=== PATIENT | female | born 1945 | race Caucasian/White ===

== ENCOUNTER 2017-11-04 09:00 | Outpatient (RCR) | payer MEDICARE, OTHER, SELFPAY ==
--- NOTE | 2017-10-06 09:49 | PT.OIE ---
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) Allergic rhinitis (Chronic) DSAP (disseminated superficial actinic porokeratosis) (Chronic) Peripheral neuropathy (Chronic) Osteopenia after menopause (Chronic) Recurrent genital HSV (herpes simplex virus) infection (Chronic) History of melanoma (Resolved) Cervical myofascial strain (Acute) History of poliomyelitis (Chronic) Basal cell carcinoma of skin (Resolved) Squamous cell skin cancer (Resolved) Actinic keratosis (Chronic) Herpes (Chronic ~1979) Melanoma (Chronic ~2014) Neck pain (Chronic) Osteoarthritis of neck (Chronic) Osteopenia (Chronic) Peripheral neuropathy (Chronic) Rosacea (Chronic) Skin cancer (Chronic) Chicken pox (Resolved) Measles (Resolved) Mumps (Resolved) Polio (Resolved) Past Surgical History (Last Updated 09/15/17 @ 20:37 by Gabrielle Mejía) Anesthesia (Resolved) History of bilateral saline breast implants (Resolved ~1979) Provider Visit Care Team Role Provider Type Kirill Maurer Primary Care Provider Non-Staff Specialty: Medical Address: [address] [place] [address], [phone] Fax: Email: Citlalli Chu DO Attending Provider Physician Specialty: Family Practice Address: [address] [place] [address], [id number] Email: [email or web address] Physical Therapy Initial Evaluation PT-OP-A Visit Information Start: 10/06/17 09:13 Freq: Status: Active Protocol: Document 10/05/17 15:15 [facility] (Rec: 10/06/17 09:49 [facility] [email or web address]) Out-Patient Physical Therapy Visit Information Visit Information Visit Type Initial Evaluation Visit Start Time 15:15 Visit Stop Time 16:00 Total Visit Minutes 45 Visit Number 1 Evaluation Information Evaluation Date 10/05/17 PT-OP-B Current Condition Start: 10/06/17 09:13 Freq: Status: Active Protocol: Document 10/05/17 15:15 [facility] (Rec: 10/06/17 09:49 [facility] [email or web address]) Current Condition History of Current Condition Onset Date Symptoms began in July 2017 Current Complaints right sided neck pain rated 4- 5/10 History of Current Condition Lauren is a active 72 year old female with complaints of right sided neck pain that began in July 2017. Her symptoms began after lifting over head weights in a exercise class. She notes 5 years ago she had similar complaints but they resolved after a lidocaine injection. Her complaints of pain are with positions having her head down such as reading or chopping vegetables in the kitchen. She denies any pain at night. Past medical history includes osteopenia, hx of polio, back pain, and hx of neck pain 5 years ago. Treatment Goals Patient/Caregiver Goals The patients goals include decreasing pain and modifying her exercise routine to prevent future pain symptoms PT-OP-C Subjective Start: 10/06/17 09:13 Freq: Status: Active Protocol: Document 10/05/17 15:15 [facility] (Rec: 10/06/17 09:49 [facility] [email or web address]) OP-PT Pain Assessment Pain Assessment Grid Paper Pain Assessment Grid Completed Yes Location Right Neck Intensity 5 Scale Used Numeric (1 - 10) Description Aching Sharp Tightness With Movement Frequency Intermittent Pain Duration while in a flexed position Pain Aggravating Factors Position PT-OP-F Manual Assessment Start: 10/06/17 09:13 Freq: Status: Active Protocol: Document 10/05/17 15:15 [facility] (Rec: 10/06/17 09:49 [facility] [email or web address]) Manual Assessments Soft Tissue Assessment Soft Tissue Mobility Assessment myofascial tightness in bilateral upper trapezius, scalenes, and levator trapezius,suboccipitals, and pec minor Joint Mobility Assessment Joint Mobility Assessment decreased C1-2 cervical rotation bilaterally decreased cervical joint mobility into sidebending left C5-6 left facet joint restriction hypomobility to joint play of the upper thoracic spine into extension PT-OP-J Posture/Palpation/Skin Start: 10/06/17 09:13 Freq: Status: Active Protocol: Document 10/05/17 15:15 [facility] (Rec: 10/06/17 09:49 [facility] [email or web address]) Posture Evaluation Position Standing Evaluation View Posterior Head/C-Spine Posture Extended Shoulder Posture (L) Elevated Comments Posture Comments due to hx of polio Roe stands with right shoulder depresssed and slight curve of her thoracic spine, she carries herself very stiff in the thoracic spine and has over dominance of the obliques at rest Palpation Assessment Location Two Palpation Location thoracic spine Palpation Findings Tenderness Palpation Details hypomobility of the thoracic spine One Palpation Location cervical spine musculature Palpation Findings Soft Tissue Tightness Spasm Muscle Guarding PT-OP-K Range of Motion Start: 10/06/17 09:13 Freq: Status: Active Protocol: Document 10/05/17 15:15 [facility] (Rec: 10/06/17 09:49 [facility] [email or web address]) Cervical Spine Range of Motion Cervical Spine Active Testing Position Sitting Flexion 70 Extension 60 Rotation Left 40 Rotation Right 45 Lateral Flexion Left 10 Lateral Flexion Right 20 ROM Limitations Soft Tissue Tightness Pain PT-OP-Q Treatments Start: 10/06/17 09:13 Freq: Status: Active Protocol: Document 10/05/17 15:15 [facility] (Rec: 10/06/17 09:49 [facility] [email or web address]) Therapeutic Exercises Supine Exercises 2 Supine Exercise Name seated chin retraction Reps/Minutes 10 reps a few times per day 1 Supine Exercise Name seated scalene and levator scapula stretch Side bilateral Reps/Minutes hold 1-2 minutes Prone Exercises 1 Prone Exercise Name prone chin tuck with head lift Reps/Minutes 10 reps Other Exercises 1 Other Exercise Name foam roll stretch Manual Therapy Treatment Soft Tissue Mobilization 1 Body Location cervical spine Comments trial of suboccipital release and manual cervical traction with good tolerance PT-OP-T Assessment and Plan Start: 10/06/17 09:13 Freq: Status: Active Protocol: Document 10/05/17 15:15 [facility] (Rec: 10/06/17 09:49 [facility] [email or web address]) Physical Therapy Assessment Rehab Potential Rehabilitation Potential Excellent Evaluation Complexity Number of Personal Factors/Comorbidities 0 Number of Body Systems Impaired 1-2 Clinical Presentation at Evaluation Stable Impairments Impairments Activity Tolerance Pain Posture ROM Soft Tissue Mobility Goals Four Impairment Roe lacks a home program for flexibility and strength Fdc Goal (LTG) Roe is educated on a home exercise program that is safe for her for weight lifting and yoga positions that avoid strain to the cervical spine Three Impairment myofascial restrictions cervical musculature, decreased thoracic mobility Metals Analyst Goal (LTG) There is a decrease overall in myofascial tightness of the upper trapezius, scalenes, and levator scapula reducing compression to the cervical spine. Improved thoracic mobility with manual treatments and stretches LTG Duration 8 weeks Two Impairment pain in the cervical spine rated 4-5/10 Short Term Goal (STG) Roe reports decreased complaints of pain with aggravating activities STG Duration 6 weeks One Impairment decreased cervical spine ROM Short Term Goal (STG) Improve cervcial spine ROM to WFL and pain free enabling Roe to look down for reading and cooking activities STG Duration 6 weeks Assessment Summary Assessment Charan is a active 72 year old female who injured her neck lifting weights overhead in a exercise class in July. Her chief complaints of neck pain are with activities that require her head to be down including ready and prepping dinner. With examination today she is very tight in her cervical musculature into the upper trapezius, scalenes and levator scapula bilaterally. She is restricted in the facet joints C5-6 on the left and with C1-2 rotation. Roe would also benefit from instruction in a home exercise program for weight lifting and yoga positions that are safe for her to do to prevent further injury. She tolerated treatment well today and is a good candidate for PT Physical Therapy Plan Therapeutic Interventions Therapeutic Interventions Home Exercise Program Joint Mobilizations Manual Therapy Self-Care/Home Management Soft Tissue Mobilization Therapeutic Exercises Modalities Traction- Mechanical Next Visit Focus/Plan Next Note Type Treatment Note Next Visit Plan begin working on thoracic mobility and trial of cervical traction as manual traction worked well for her
--- NOTE | 2017-10-06 09:50 | PT.OPPOC ---
Current Diagnoses Cervicalgia (10/05/17) Provider Visit Care Team Role Provider Type Kirill Maurer Primary Care Provider Non-Staff Specialty: Medical Address: [address] [place], [address] Fax: Email: Citlalli Chu DO Attending Provider Physician Specialty: Family Practice Address: [address] [place] [address], [phone] Email: [email or web address] Plan Of Care PT-OP-T Assessment and Plan Start: 10/06/17 09:13 Freq: Status: Active Protocol: Document 10/05/17 15:15 [facility] (Rec: 10/06/17 09:49 [facility] [email or web address]) Physical Therapy Assessment Rehab Potential Rehabilitation Potential Excellent Evaluation Complexity Number of Personal Factors/Comorbidities 0 Number of Body Systems Impaired 1-2 Clinical Presentation at Evaluation Stable Impairments Impairments Activity Tolerance Pain Posture ROM Soft Tissue Mobility Goals Four Impairment Roe lacks a home program for flexibility and strength Intermediate Goal (LTG) Roe is educated on a home exercise program that is safe for her for weight lifting and yoga positions that avoid strain to the cervical spine Three Impairment myofascial restrictions cervical musculature, decreased thoracic mobility Intermediate Goal (LTG) There is a decrease overall in myofascial tightness of the upper trapezius, scalenes, and levator scapula reducing compression to the cervical spine. Improved thoracic mobility with manual treatments and stretches LTG Duration 8 weeks Two Impairment pain in the cervical spine rated 4-5/10 Short Term Goal (STG) Roe reports decreased complaints of pain with aggravating activities STG Duration 6 weeks One Impairment decreased cervical spine ROM Short Term Goal (STG) Improve cervcial spine ROM to WFL and pain free enabling Roe to look down for reading and cooking activities STG Duration 6 weeks Assessment Summary Assessment Charan is a active 72 year old female who injured her neck lifting weights overhead in a exercise class in July. Her chief complaints of neck pain are with activities that require her head to be down including ready and prepping dinner. With examination today she is very tight in her cervical musculature into the upper trapezius, scalenes and levator scapula bilaterally. She is restricted in the facet joints C5-6 on the left and with C1-2 rotation. Roe would also benefit from instruction in a home exercise program for weightlifing and yoga positions that are safe for her to do to prevent further injury. She tolerated treatment well today and is a good candidate for PT Physical Therapy Plan Therapeutic Interventions Therapeutic Interventions Home Exercise Program Joint Mobilizations Manual Therapy Self-Care/Home Management Soft Tissue Mobilization Therapeutic Exercises Modalities Traction- Mechanical Next Visit Focus/Plan Next Note Type Treatment Note Next Visit Plan begin working on thoracic mobility and trial of cervical traction as manual traction worked well for her Please Sign and Return: I have reviewed this Plan of Care and certify that the skilled therapy services above are required to meet the patient?s needs. Physician Signature Date Printed Name and Credentials Clinical Instructor Signature Printed Name and Credentials
--- NOTE | 2017-10-07 16:55 | PT.OTN ---
Current Diagnoses Cervicalgia (10/07/17) Physical Therapy Treatment Note PT-OP-A Visit Information Start: 10/06/17 09:13 Freq: Status: Active Protocol: Document 10/07/17 16:47 [facility] (Rec: 10/07/17 16:55 [facility] [email or web address]) Out-Patient Physical Therapy Visit Information Visit Information Visit Type Treatment Note Visit Start Time 15:00 Visit Stop Time 15:45 Total Visit Minutes 45 Visit Number 2 PT-OP-B Current Condition Start: 10/06/17 09:13 Freq: Status: Active Protocol: Document 10/05/17 15:15 [facility] (Rec: 10/06/17 09:49 [facility] [email or web address]) Current Condition History of Current Condition Onset Date Symptoms began in July 2017 Current Complaints right sided neck pain rated 4- 5/10 History of Current Condition Lauren is a active 72 year old female with complaints of right sided neck pain that began in July 2017. Her symptoms began after lifting over head weights in a exercise class. She notes 5 years ago she had similar complaints but they resolved after a lidocaine injection. Her complaints of pain are with positions having her head down such as reading or chopping vegetables in the kitchen. She denies any pain at night. Past medical history includes osteopenia, hx of polio, back pain, and hx of neck pain 5 years ago. Treatment Goals Patient/Caregiver Goals The patients goals include decreasing pain and modifying her exercise routine to prevent future pain symptoms PT-OP-C Subjective Start: 10/06/17 09:13 Freq: Status: Active Protocol: Document 10/07/17 16:47 [facility] (Rec: 10/07/17 16:55 [facility] [email or web address]) OP-PT Subjective Patient Comments Patient Comments Roe has no new complaints today and tolerated her last session well PT-OP-F Manual Assessment Start: 10/06/17 09:13 Freq: Status: Active Protocol: Document 10/05/17 15:15 [facility] (Rec: 10/06/17 09:49 [facility] [email or web address]) Manual Assessments Soft Tissue Assessment Soft Tissue Mobility Assessment myofascial tightness in bilateral upper trapezius, scalenes, and levator trapezius,suboccipitals, and pec minor Joint Mobility Assessment Joint Mobility Assessment decreased C1-2 cervical rotation bilaterally decreased cervical joint mobility into sidebending left C5-6 left facet joint restriction hypomobility to joint play of the upper thoracic spine into extension PT-OP-J Posture/Palpation/Skin Start: 10/06/17 09:13 Freq: Status: Active Protocol: Document 10/05/17 15:15 [facility] (Rec: 10/06/17 09:49 [facility] [email or web address]) Posture Evaluation Position Standing Evaluation View Posterior Head/C-Spine Posture Extended Shoulder Posture (L) Elevated Comments Posture Comments due to hx of polio Roe stands with right shoulder depresssed and slight curve of her thoracic spine, she carries herself very stiff in the thoracic spine and has over dominance of the obliques at rest Palpation Assessment Location Two Palpation Location thoracic spine Palpation Findings Tenderness Palpation Details hypomobility of the thoracic spine One Palpation Location cervical spine musculature Palpation Findings Soft Tissue Tightness Spasm Muscle Guarding PT-OP-K Range of Motion Start: 10/06/17 09:13 Freq: Status: Active Protocol: Document 10/05/17 15:15 [facility] (Rec: 10/06/17 09:49 [facility] [email or web address]) Cervical Spine Range of Motion Cervical Spine Active Testing Position Sitting Flexion 70 Extension 60 Rotation Left 40 Rotation Right 45 Lateral Flexion Left 10 Lateral Flexion Right 20 ROM Limitations Soft Tissue Tightness Pain PT-OP-Q Treatments Start: 10/06/17 09:13 Freq: Status: Active Protocol: Document 10/07/17 16:47 [facility] (Rec: 10/07/17 16:55 [facility] [email or web address]) Therapeutic Exercises Supine Exercises 2 Supine Exercise Name seated chin retraction Reps/Minutes 10 reps a few times per day 1 Supine Exercise Name seated scalene and levator scapula stretch Side bilateral Reps/Minutes hold 1-2 minutes Prone Exercises 2 Prone Exercise Name prone chin tuck with thoracic extension 1 Prone Exercise Name prone chin tuck with head lift Reps/Minutes 10 reps Standing Exercises 1 Standing Exercise Name standing rows Equipment Used level 1 Reps/Minutes 10 reps Other Exercises 2 Other Exercise Name quadruped cat cow/ prayer stretch/thoracic rotation Manual Therapy Treatment Soft Tissue Mobilization 1 Body Location cervical spine Comments trial of suboccipital release and manual cervical traction with good tolerance Manual Techniques 2 Type seated PA mobs T1-T4 1 Type manual stretching of the cervical spine into sidebending and rotation PT-OP-T Assessment and Plan Start: 10/06/17 09:13 Freq: Status: Active Protocol: Document 10/07/17 16:47 [facility] (Rec: 10/07/17 16:55 [facility] [email or web address]) Physical Therapy Assessment Assessment Summary Assessment good tolerance for exercise today and worked on correcting upper cervical extension in seated positions. Added in thoracic mobilizations. Roe is tight in the upper cervcial spine Physical Therapy Plan Frequency and Duration Frequency of Treatment 2x/Week Duration of Treatment 8 weeks Plan of Care Start Date 10/05/17 Plan of Care End Date 11/30/17 Therapeutic Interventions Therapeutic Interventions Home Exercise Program Joint Mobilizations Manual Therapy Self-Care/Home Management Soft Tissue Mobilization Therapeutic Exercises Modalities Traction- Mechanical Next Visit Focus/Plan Next Note Type Treatment Note Next Visit Plan work on improved thoracic mobility and cervical stability
--- NOTE | 2017-11-04 12:29 | PT.OTN ---
Current Diagnoses Cervicalgia (11/04/17) Physical Therapy Treatment Note PT-OP-A Visit Information Start: 10/06/17 09:13 Freq: Status: Active Protocol: Document 11/04/17 12:21 [facility] (Rec: 11/04/17 12:29 [facility] [email or web address]) Out-Patient Physical Therapy Visit Information Visit Information Visit Type Treatment Note Visit Start Time 09:00 Visit Stop Time 09:45 Total Visit Minutes 45 Visit Number 3 Evaluation Information Evaluation Date 10/05/17 PT-OP-B Current Condition Start: 10/06/17 09:13 Freq: Status: Active Protocol: Document 10/05/17 15:15 [facility] (Rec: 10/06/17 09:49 [facility] [email or web address]) Current Condition History of Current Condition Onset Date Symptoms began in July 2017 Current Complaints right sided neck pain rated 4- 5/10 History of Current Condition Lauren is a active 72 year old female with complaints of right sided neck pain that began in July 2017. Her symptoms began after lifting over head weights in a exercise class. She notes 5 years ago she had similar complaints but they resolved after a lidocaine injection. Her complaints of pain are with positions having her head down such as reading or chopping vegetables in the kitchen. She denies any pain at night. Past medical history includes osteopenia, hx of polio, back pain, and hx of neck pain 5 years ago. Treatment Goals Patient/Caregiver Goals The patients goals include decreasing pain and modifying her exercise routine to prevent future pain symptoms PT-OP-C Subjective Start: 10/06/17 09:13 Freq: Status: Active Protocol: Document 11/04/17 12:21 [facility] (Rec: 11/04/17 12:29 [facility] [email or web address]) OP-PT Subjective Patient Comments Patient Comments Roe reports she can golf fine but with standing and putting yesterday this aggravated her neck. PT-OP-F Manual Assessment Start: 10/06/17 09:13 Freq: Status: Active Protocol: Document 10/05/17 15:15 [facility] (Rec: 10/06/17 09:49 [facility] [email or web address]) Manual Assessments Soft Tissue Assessment Soft Tissue Mobility Assessment myofascial tightness in bilateral upper trapezius, scalenes, and levator trapezius,suboccipitals, and pec minor Joint Mobility Assessment Joint Mobility Assessment decreased C1-2 cervical rotation bilaterally decreased cervical joint mobility into sidebending left C5-6 left facet joint restriction hypomobility to joint play of the upper thoracic spine into extension PT-OP-J Posture/Palpation/Skin Start: 10/06/17 09:13 Freq: Status: Active Protocol: Document 10/05/17 15:15 [facility] (Rec: 10/06/17 09:49 [facility] [email or web address]) Posture Evaluation Position Standing Evaluation View Posterior Head/C-Spine Posture Extended Shoulder Posture (L) Elevated Comments Posture Comments due to hx of polio Roe stands with right shoulder depresssed and slight curve of her thoracic spine, she carries herself very stiff in the thoracic spine and has over dominance of the obliques at rest Palpation Assessment Location Two Palpation Location thoracic spine Palpation Findings Tenderness Palpation Details hypomobility of the thoracic spine One Palpation Location cervical spine musculature Palpation Findings Soft Tissue Tightness Spasm Muscle Guarding PT-OP-K Range of Motion Start: 10/06/17 09:13 Freq: Status: Active Protocol: Document 10/05/17 15:15 [facility] (Rec: 10/06/17 09:49 [facility] [email or web address]) Cervical Spine Range of Motion Cervical Spine Active Testing Position Sitting Flexion 70 Extension 60 Rotation Left 40 Rotation Right 45 Lateral Flexion Left 10 Lateral Flexion Right 20 ROM Limitations Soft Tissue Tightness Pain PT-OP-Q Treatments Start: 10/06/17 09:13 Freq: Status: Active Protocol: Document 11/04/17 12:21 [facility] (Rec: 11/04/17 12:29 [facility] [email or web address]) Therapeutic Exercises Supine Exercises 2 Supine Exercise Name seated chin retraction Reps/Minutes 10 reps a few times per day 1 Supine Exercise Name seated scalene and levator scapula stretch Side bilateral Reps/Minutes hold 1-2 minutes Prone Exercises 2 Prone Exercise Name prone chin tuck with thoracic extension 1 Prone Exercise Name prone chin tuck with head lift Reps/Minutes 10 reps Other Exercises 3 Other Exercise Name warrior 1-3 yoga poses with chin position 2 Other Exercise Name quadruped cat cow/ prayer stretch/thoracic rotation Manual Therapy Treatment Soft Tissue Mobilization 1 Body Location manual suboccipital release, and upper trapezius release Manual Techniques 2 Type supine PA mobs T1-T4 1 Type manual stretching of the cervical spine into sidebending and rotation Self-Care/Home Management Treatment Education Patient Education Home Exercise Program PT-OP-T Assessment and Plan Start: 10/06/17 09:13 Freq: Status: Active Protocol: Document 11/04/17 12:21 [facility] (Rec: 11/04/17 12:29 [facility] [email or web address]) Physical Therapy Assessment Progress Towards Goals Progress Towards Goals Progressing Toward Goals Progress Comments Overall pain is decreased and Roe feels independent with her home program. She is still tight in her upper cervical musculature and she will continue to work on self suboccipital release and stretches Assessment Summary Assessment I reviewed cervical chin retraction today as well as a home thoracic extension and stretching program for Roe . We went over body mechanics for putting with slight chin retraction as she tends to get into upper cervical extension placing stress at C5-6 region . She feels good with her home program and reports she will continue with her stretches on her own at this time. Physical Therapy Plan Discharge Physical Therapy Discharge Reasons Patient Request Discharge Comments Roe feels independent with her home exercise program at this time
== END 2018-05-20 12:25 ==
LOC: PHYS 09:00
PROVIDERS: PCP Internal Medicine; Visit Provider Family Medicine
DX: M54.2 Cervicalgia (principal)
CPT/HCPCS: 97110; 97140; 97161

== ENCOUNTER → 2017-12-13 14:01 | Outpatient (CLI) | payer MEDICARE, OTHER, SELFPAY | PROVIDERS: Visit Provider Internal Medicine | DX: M85.852 Other specified disorders of bone density and structure, left thigh (principal); Z78.0 Asymptomatic menopausal state; Z82.62 Family history of osteoporosis | CPT/HCPCS: 77080 ==

== ENCOUNTER → 2018-07-19 07:06 | Outpatient (CLI) | payer MEDICARE, OTHER, SELFPAY ==
[2018-07-21 10:50] LABS: Lipoprofile NMR SEE SEPARATE REPORTS
== END ==
PROVIDERS: Visit Provider Internal Medicine
DX: E78.5 Hyperlipidemia, unspecified (principal)
CPT/HCPCS: 36415; 83704

== ENCOUNTER → 2018-08-18 09:49 | Outpatient (CLI) | payer MEDICARE, OTHER, SELFPAY ==
--- NOTE | 2018-08-18 | DI.MG.S_ITS ---
BILATERAL DIGITAL SCREENING MAMMOGRAM 3D/2D WITH CAD WITH AUGMENTATION: 08/18/2018 CLINICAL: Routine screening. Comparison is made to exams dated: 07/20/2017 mammogram, 11/19/2015 mammogram, 10/16/2014 mammogram, and 09/26/2013 mammogram - [facility]. The tissue of both breasts is predominantly fatty. Current study was also evaluated with a Computer Aided Detection (CAD) system. Redemonstrated countour abnormality of the posterior superior left breast implant suggestive of rupture, which is partially imaged but otherwise stable in appearance to prior exam of 07/20/17. Bilateral breast implants are otherwise stable. There is a mole marker on the right breast. No significant masses, calcifications, or other findings are seen in either breast. There has been no significant interval change. IMPRESSION: NEGATIVE There is no mammographic evidence of malignancy. A 1 year screening mammogram is recommended. This exam was interpreted at Station ID: [id number]. NOTE: For mammograms, a report in lay terms will be sent to the patient. Approximately 15% of breast malignancies will not be visualized mammographically. In the management of a palpable breast mass, a negative mammogram must not discourage biopsy of a clinically suspicious lesion. Electronically Signed By: Chance Sharpe M.D. ecl/:08/18/2018 18:12:57 letter sent: Normal Exam ACR BI-RADS Category 1: Negative 3341F
== END ==
PROVIDERS: PCP Internal Medicine; Visit Provider Internal Medicine
DX: Z12.31 Encounter for screening mammogram for malignant neoplasm of breast (principal)
CPT/HCPCS: 77063; 77067

== ENCOUNTER → 2019-10-05 13:15 | Outpatient (CLI) | payer MEDICARE, OTHER, SELFPAY ==
--- NOTE | 2019-10-05 | DI.MG.S_ITS ---
BILATERAL DIGITAL SCREENING MAMMOGRAM 3D/2D WITH CAD WITH AUGMENTATION: 10/05/2019 CLINICAL: Routine screening. Comparison is made to exams dated: 08/18/2018 mammogram - [facility], 07/20/2017 mammogram, and 11/19/2015 mammogram - [facility]. There are scattered fibroglandular elements in both breasts. Current study was also evaluated with a Computer Aided Detection (CAD) system. Bilateral breast implants are stable. No significant masses, calcifications, or other findings are seen in either breast. There has been no significant interval change. IMPRESSION: NEGATIVE There is no mammographic evidence of malignancy. A 1 year screening mammogram is recommended. This exam was interpreted at Station ID: [id number]. NOTE: For mammograms, a report in lay terms will be sent to the patient. Approximately 15% of breast malignancies will not be visualized mammographically. In the management of a palpable breast mass, a negative mammogram must not discourage biopsy of a clinically suspicious lesion. Electronically Signed By: Lesia patel/amador:10/09/2019 15:42:17 letter sent: Normal Exam ACR BI-RADS Category 1: Negative 3341F
== END ==
PROVIDERS: PCP Internal Medicine; Referring Provider Internal Medicine; Visit Provider Internal Medicine
DX: Z12.31 Encounter for screening mammogram for malignant neoplasm of breast (principal); M85.832 Other specified disorders of bone density and structure, left forearm; Z78.0 Asymptomatic menopausal state; Z82.62 Family history of osteoporosis
CPT/HCPCS: 77063; 77067; 77080

== ENCOUNTER → 2019-11-03 06:48 | Outpatient (CLI) | payer MEDICARE, OTHER, SELFPAY ==
[2019-11-03 07:39] LABS: Add Manual Diff / Slide Review NO; Basophils Absolute Auto 0 /uL (0-100); Basophils Percent Auto 0.2 % (0-2); Eosinophils Absolute Auto 100 /uL (0-450); Eosinophils Percent Auto 3.9 % (2-4); Hematocrit 39.9 % (36-46); Hemoglobin 13.8 g/dL (12.0-16.0); Lymphocytes Absolute Auto 1400 /uL (1100-4500); Mean Corpuscular HGB Conc 34.7 % (30-36); Mean Corpuscular Hemoglobin 32.8 PG (26-34); Mean Corpuscular Volume 94.5 fL (80-100); Monocytes Absolute Auto 500 /uL (0-900); Neutrophils Absolute Auto 1700 /uL (1500-7000); Neutrophils Percent Auto 45.9 % (50-75); Platelet Count 192 X10^3/uL (150-400); Red Blood Cell Count 4.23 X10^6/uL (4.0-5.2); Red Cell Distribution Width 12.4 % (11.6-14.8); White Blood Cell Count 3.8 X10^3/uL (4.5-11.0)
[2019-11-03 07:49] LABS: Alanine Aminotransferase 26 IU/L (<35); Albumin 4.2 g/dL (3.5-5.0); Albumin Globulin Ratio 1.2 (1.0-2.8); Alkaline Phosphatase 64 U/L (38-126); Aspartate Aminotransferase 33 IU/L (14-36); BUN Creatinine Ratio 24.7 (6-22); Bilirubin Total 0.5 mg/dL (0.2-1.3); Blood Urea Nitrogen 20 mg/dL (7-17); Calcium 9.3 mg/dL (8.4-10.2); Carbon Dioxide 30 mmol/L (22-32); Chloride 98 mmol/L (98-107); Cholesterol 159 mg/dL (140-199); Estimated Glomerular Filt Rate > 60.0 mL/min (>60); Globulin 3.5 g/dL (1.7-4.1); Glucose 90 mg/dL (80-110); HDL Cholesterol 66 mg/dL (40-60); HEMOLYSIS < 15 (0-50); LDL Cholesterol Calculated 84 mg/dL (<100); Lactate Dehydrogenase 423 U/L (313-618); Phosphorous 3.7 mg/dL (2.8-4.1); Potassium 4.3 mmol/L (3.4-5.1); Sodium 133 mmol/L (137-145); Total Protein 7.7 g/dL (6.3-8.2); Triglycerides 44 mg/dL (35-150); Uric Acid 4.8 mg/dL (2.5-6.2)
[2019-11-03 07:53] LABS: High Sensitivity CRP - Cardiac 1.1 mg/L (1.0-3.0)
[2019-11-03 07:55] LABS: Erythrocyte Sedimentation Rate 8 MM/HR (0-20)
[2019-11-03 08:29] LABS: Free T3, Triiodothyronine Free 3.38 pg/mL (2.77-5.27); Free T4, Direct Thyroxine 0.89 ng/dL (0.78-2.19); Triiodothryronine T3 Uptake 32.2 % (23.5-40.5); Vitamin D 25 Hydroxy (D3) 73.9 ng/mL (30.0-100.0)
[2019-11-04 10:23] LABS: SARS CoV19 IgG Negative (Negative)
== END ==
PROVIDERS: PCP Internal Medicine; Referring Provider Internal Medicine; Visit Provider Internal Medicine
DX: Z00.00 Encounter for general adult medical examination without abnormal findings (principal); Z03.818 Encounter for observation for suspected exposure to other biological agents ruled out; Z79.899 Other long term (current) drug therapy; M85.80 Other specified disorders of bone density and structure, unspecified site; Z01.83 Encounter for blood typing
CPT/HCPCS: 36415; 80053; 80061; 82248; 82306; 83615; 84100; 84439; 84479; 84481; 84550; 85025; 85651; 86140; 86769; 86900; 86901

== ENCOUNTER → 2019-11-10 08:15 | Outpatient (CLI) | payer MEDICARE, OTHER, SELFPAY ==
--- NOTE | 2019-11-10 | DI.US.S_ITS ---
PROCEDURE: US CAROTID DOPPLER BI INDICATIONS: headaches TECHNIQUE: Color and pulse Doppler interrogation was performed of both carotid systems, with image documentation and velocity measurements. COMPARISON: None. FINDINGS: Stenosis calculations are based on SRU (Society of Radiologists in Ultrasound) criteria. Right side: Brachial blood pressure: 130/64 mm Hg. Common carotid artery peak systolic velocity: 104 cm/sec. Internal carotid artery peak systolic velocity: 97 cm/sec. Internal carotid artery end diastolic velocity: 36 cm/sec. External carotid artery peak systolic velocity: 74 cm/sec. ICA/CCA peak systolic ratio: 0.9 . Adrian scale imaging description: Minimal soft plaque Percent internal carotid artery stenosis: Less than 50% stenosis . Vertebral artery: Flow direction is antegrade. Left side: Brachial blood pressure: 125/56 mm Hg. Common carotid artery peak systolic velocity: 114 cm/sec. Internal carotid artery peak systolic velocity: 95 cm/sec. Internal carotid artery end diastolic velocity: 35 cm/sec. External carotid artery peak systolic velocity: 92 cm/sec. ICA/CCA peak systolic ratio: 0.8 . Adrian scale imaging description: None identified Percent internal carotid artery stenosis: None found . Vertebral artery: Flow direction is antegrade. IMPRESSION: Less than 50% stenosis within the proximal right internal carotid artery, no identified stenosis suspected within the left internal carotid artery. Dictated by: Daniel Sutherland M.D. on 11/10/2019 at 11:03 Approved by: Daniel Sutherland M.D. on 11/10/2019 at 11:05
== END ==
PROVIDERS: PCP Internal Medicine; Referring Provider Internal Medicine; Visit Provider Internal Medicine
DX: I65.21 Occlusion and stenosis of right carotid artery (principal); R51 Headache
CPT/HCPCS: 93880

== ENCOUNTER → 2020-08-08 14:02 | Outpatient (CLI) | payer MEDICARE, OTHER, SELFPAY ==
[2020-08-08 14:54] LABS: Add Manual Diff / Slide Review NO; Basophils Absolute Auto 100 /uL (0-100); Basophils Percent Auto 0.9 % (0-2); Eosinophils Absolute Auto 100 /uL (0-450); Eosinophils Percent Auto 1.7 % (2-4); Hemoglobin 12.9 g/dL (12.0-16.0); Lymphocytes Absolute Auto 1400 /uL (1100-4500); Mean Corpuscular HGB Conc 33.9 % (30-36); Mean Corpuscular Hemoglobin 31.9 PG (26-34); Monocytes Absolute Auto 500 /uL (0-900); Monocytes Percent Auto 7.8 % (3-14); Neutrophils Absolute Auto 4000 /uL (1500-7000); Neutrophils Percent Auto 66.6 % (50-75); Platelet Count 223 X10^3/uL (150-400); Red Blood Cell Count 4.04 X10^6/uL (4.0-5.2); Red Cell Distribution Width 12.3 % (11.6-14.8)
[2020-08-10 16:54] LABS: ANA Screen, IFA Positive (.)
== END ==
PROVIDERS: PCP Internal Medicine; Referring Provider Dermatology; Visit Provider Dermatology
DX: L30.9 Dermatitis, unspecified (principal); I10 Essential (primary) hypertension
CPT/HCPCS: 36415; 85025; 86038

== ENCOUNTER → 2020-08-16 10:34 | Outpatient (CLI) | payer MEDICARE, OTHER, SELFPAY ==
[2020-08-19 17:32] LABS: ANA Screen, IFA Positive (.)
== END ==
PROVIDERS: PCP Internal Medicine; Referring Provider Internal Medicine; Visit Provider Internal Medicine
DX: R76.8 Other specified abnormal immunological findings in serum (principal)
CPT/HCPCS: 36415; 86038

== ENCOUNTER → 2020-10-17 10:03 | Outpatient (CLI) | payer MEDICARE, OTHER, SELFPAY ==
--- NOTE | 2020-10-17 | DI.MG.S_ITS ---
BILATERAL DIGITAL SCREENING MAMMOGRAM 3D/2D WITH CAD WITH AUGMENTATION: 10/17/2020 CLINICAL: Routine screening. Comparison is made to exams dated: 10/05/2019 mammogram, 08/18/2018 mammogram - [facility], and 07/20/2017 mammogram - [facility]. There are scattered fibroglandular elements in both breasts. Current study was also evaluated with a Computer Aided Detection (CAD) system. Bilateral breast implants are stable. No significant masses, calcifications, or other findings are seen in either breast. There has been no significant interval change. IMPRESSION: NEGATIVE There is no mammographic evidence of malignancy. A 1 year screening mammogram is recommended. This exam was interpreted at Station ID: [id number]. NOTE: For mammograms, a report in lay terms will be sent to the patient. Approximately 15% of breast malignancies will not be visualized mammographically. In the management of a palpable breast mass, a negative mammogram must not discourage biopsy of a clinically suspicious lesion. Electronically Signed By: Bobby pizarro/amador:10/17/2020 14:34:26 letter sent: Normal Exam ACR BI-RADS Category 1: Negative 3341F
== END ==
PROVIDERS: PCP Internal Medicine; Referring Provider Internal Medicine; Visit Provider Internal Medicine
DX: Z12.31 Encounter for screening mammogram for malignant neoplasm of breast (principal)
CPT/HCPCS: 77063; 77067

== ENCOUNTER → 2020-11-04 07:54 | Outpatient (CLI) | payer MEDICARE, OTHER, SELFPAY ==
--- NOTE | 2020-11-04 | DI.ECHO.S_ITS ---
[facility] +---------+ : : [address] : [place] : : : : [id number] : : : : Phone: [phone]+ Echocardiogram Report + + :Name: SITA LOBO Study Date: 11/04/2020 Height: 64 in : :[facility] ReadingLocation: Weight: 115 lb : : Gender: Female BSA: 1.5 m2 : :: 1945 Age: 75 yrs BP: 147/79 mmHg: :Reason For Study: Pulmonary - Hypertension : :Ordering Physician: TOBY WOLFE : :T Performed By: Mauricio Muñiz : :Referring: TOBY WOLFE T : + + Interpretation Summary The ejection fraction is estimated to be 55-60%. Normal diastolic function. Normal right ventricular systolic function. Mild mitral regurgitation. Unable to estimate PASP. Procedure: A two-dimensional transthoracic echocardiogram with color flow and Doppler was performed. The study quality was technically adequate. There is no prior echocardiogram noted for this patient. Left Ventricle: The left ventricle is normal in size and wall thickness. Left ventricular systolic function is normal. The ejection fraction is estimated to be 55-60%. There are no focal wall motion abnormalities. Diastolic parameters suggest a relaxation abnormality of the left ventricle, consistent with probable normal filling pressures. Right Ventricle: The right ventricle is normal in size and function. Atria: Both atria are normal in size. There is no Doppler evidence for an interatrial shunt. Mitral Valve: The mitral valve is normal in structure and function. There is mild mitral regurgitation. Aortic Valve: The aortic valve is normal in structure and function. No aortic regurgitation is present. Tricuspid Valve: The tricuspid valve is normal in structure and function. There is a trace or physiologic amount of tricuspid regurgitation. Pulmonary artery pressures cannot be estimated because of the lack of a measurable TR jet velocity but the IVC suggests a CVP of around 3 mmHg. Pulmonic Valve: The pulmonic valve is not well seen, but is grossly normal. There is no pulmonic valvular regurgitation. Great Vessels: The aortic root is normal size. The ascending aorta could not be visualized. The IVC is of normal diameter and collapses greater than 50% with a sniff. This suggests a low right atrial pressure of 3 mm Hg. Pericardium/ Pleura There is no pericardial effusion. There is no pleural effusion. MMode/2D Measurements & Calculations LVIDd: 4.4 cm LVOT diam: 1.9 cm LVIDs: 3.0 cm Ao root diam: 2.8 cm FS: 31.8 % IVSd: 0.90 cm LVPWd: 0.70 cm LV shelby. diameter/BSA (cm/m^2): 2.8 LV sys. diameter/BSA (cm/m^2): 1.9 LA dimension: 3.0 cm RA long axis: 3.2 cm LA A2 area: 13.3 cm2 IVC diam: 0.90 cm LA A4 area: 10.8 cm2 LA length (vol): 4.9 cm LA vol: 24.8 ml LA vol index: 16.0 ml/m2 TAPSE_phl: 2.4 cm Doppler Measurements & Calculations Ao V2 max: 123.0 cm/sec LVOT Max Sha: 96.0 cm/sec Ao V2 mean: 84.6 cm/sec LV V1 max P.7 mmHg Ao max P.0 mmHg LV V1 VTI: 24.7 cm Ao mean P.0 mmHg NESTOR(I,D): 2.3 cm2 Ao V2 VTI: 30.2 cm NESTOR(V,D): 2.2 cm2 sev ratio: 0.82 NESTOR indexed to BSA (cm^2/m^2): 1.5 MV E max sha: 96.8 cm/sec TR max sha: 164.0 cm/sec MV A max sha: 65.1 cm/sec TR max P.8 mmHg MV E/A: 1.5 PA V2 max: 80.3 cm/sec Med Peak E' Sha: 7.6 cm/sec PA V2 mean: 59.5 cm/sec E/E' med: 12.7 PA mean P.0 mmHg Lat Peak E' Sha: 8.9 cm/sec PA pr(Accel): 39.8 mmHg E/E' lat: 10.9 E/e' average: 11.8 MV dec time: 0.23 sec SV(LVOT): 70.0 ml AV VR_phl: 0.78 NESTOR(VTI)/BSA_phl: 1.5 MV P1/2t-pr_phl: 68.0 msec Reading Physician:01:11 PM
== END ==
PROVIDERS: PCP Internal Medicine; Referring Provider Internal Medicine Rheumatology; Visit Provider Internal Medicine Rheumatology
DX: M34.1 CR(E)ST syndrome (principal); I34.1 Nonrheumatic mitral (valve) prolapse
CPT/HCPCS: 93306

== ENCOUNTER → 2020-11-06 14:29 | Outpatient (CLI) | payer MEDICARE, OTHER, SELFPAY ==
[2020-11-06 15:17] LABS: COVID19 -Nasal RAPID Negative (Negative)
== END ==
PROVIDERS: PCP Internal Medicine; Referring Provider Internal Medicine; Visit Provider Internal Medicine
DX: Z20.822 Contact with and (suspected) exposure to COVID-19 (principal)
CPT/HCPCS: 87635; C9803

== ENCOUNTER → 2020-11-07 08:57 | Outpatient (CLI) | payer MEDICARE, OTHER, SELFPAY ==
--- NOTE | 2020-11-15 08:48 | PM.PFT.1 ---
Pulmonary Function Test Referral & Results Date Patient Seen: 11/07/20 Requesting provider: Zeeshan Espinal Results: The spirometry demonstrates an FVC of 2.76 L which is 97% of predicted. The FEV1 was measured at 1.88 L which is 88% of predicted. The FEV1/FVC ratio was 68 which is 90% of predicted. Following the administration of bronchodilator there was no significant change to above normal numbers Lung volumes show an SVC of 2.63 L which is 95% of predicted. The diffusing capacity was measured at 19.06 which is 78% of predicted. The maximum voluntary ventilation was normal Interpretation: This study demonstrates normal pulmonary function
== END ==
PROVIDERS: PCP Internal Medicine; Referring Provider Internal Medicine Rheumatology; Visit Provider Internal Medicine Rheumatology
DX: M35.2 Behcet's disease (principal); I27.20 Pulmonary hypertension, unspecified
CPT/HCPCS: 94060; 94726; 94729

== ENCOUNTER → 2020-11-16 07:52 | Outpatient (CLI) | payer MEDICARE, OTHER, SELFPAY ==
[2020-11-16 08:56] LABS: Add Manual Diff / Slide Review NO; Basophils Absolute Auto 0 /uL (0-100); Eosinophils Absolute Auto 100 /uL (0-450); Eosinophils Percent Auto 2.6 % (2-4); Hematocrit 41.1 % (36-46); Hemoglobin 13.9 g/dL (12.0-16.0); Lymphocytes Absolute Auto 1400 /uL (1100-4500); Lymphocytes Percent Auto 29.4 % (25-40); Mean Corpuscular HGB Conc 33.7 % (30-36); Mean Corpuscular Hemoglobin 31.7 PG (26-34); Mean Corpuscular Volume 94.1 fL (80-100); Monocytes Absolute Auto 600 /uL (0-900); Monocytes Percent Auto 12.1 % (3-14); Neutrophils Absolute Auto 2500 /uL (1500-7000); Neutrophils Percent Auto 54.9 % (50-75); Platelet Count 229 X10^3/uL (150-400); Red Blood Cell Count 4.37 X10^6/uL (4.0-5.2); Red Cell Distribution Width 12.8 % (11.6-14.8); White Blood Cell Count 4.6 X10^3/uL (4.5-11.0)
[2020-11-16 09:48] LABS: Vitamin D 25 Hydroxy (D3) 79.1 ng/mL (30.0-100.0)
[2020-11-16 10:20] LABS: Cholesterol 168 mg/dL (140-199); HDL Cholesterol 79 mg/dL (40-60); LDL Cholesterol Calculated 81 mg/dL (<100); Triglycerides 38 mg/dL (35-150)
[2020-11-18 15:43] LABS: VLDL Cholesterol Calculated 8 mg/dL (2-30)
[2020-11-18 15:45] LABS: Free T4, Direct Thyroxine 1.18 ng/dL (0.78-2.19)
[2020-11-18 16:15] LABS: Thyroid Stimulating Hormone 1.33 uIU/mL (0.47-4.68)
== END ==
PROVIDERS: PCP Internal Medicine; Referring Provider Internal Medicine; Visit Provider Internal Medicine
DX: Z00.00 Encounter for general adult medical examination without abnormal findings (principal); E55.9 Vitamin D deficiency, unspecified; Z13.29 Encounter for screening for other suspected endocrine disorder
CPT/HCPCS: 36415; 80061; 82306; 84439; 84443; 85025

== ENCOUNTER → 2021-10-20 10:49 | Outpatient (CLI) | payer MEDICARE, OTHER, SELFPAY ==
--- NOTE | 2021-10-20 10:51 | DI.MG.S_ITS ---
BILATERAL DIGITAL SCREENING MAMMOGRAM 3D/2D WITH CAD WITH AUGMENTATION: 10/20/2021 CLINICAL: Routine screening. Comparison is made to exams dated: 10/17/2020 mammogram, 10/05/2019 mammogram, 08/18/2018 mammogram - [facility], and 07/20/2017 mammogram - [facility]. There are scattered areas of fibroglandular density in both breasts (category b / 25%-50% glandular tissue). Current study was also evaluated with a Computer Aided Detection (CAD) system. Bilateral breast implants are stable. No significant masses, calcifications, or other findings are seen in either breast. There has been no significant interval change. IMPRESSION: NEGATIVE There is no mammographic evidence of malignancy. A 1 year screening mammogram is recommended. Based on the Tyrer Cuzick model (a risk assessment model) the patient's lifetime risk is 2.5% and her 10 year risk is 2.5%. According to the ACR, ACS, and NCCN guidelines, an annual breast MRI exam along with mammogram is recommended if the patient's lifetime risk is 20% or greater. This exam was interpreted at Station ID: [id number]. NOTE: For mammograms, a report in lay terms will be sent to the patient. Approximately 15% of breast malignancies will not be visualized mammographically. In the management of a palpable breast mass, a negative mammogram must not discourage biopsy of a clinically suspicious lesion. Electronically Signed By: Bradley enriquez/amador:10/20/2021 11:32:07 letter sent: Normal Exam ACR BI-RADS Category 1: Negative 3341F
== END ==
PROVIDERS: PCP Internal Medicine; Referring Provider Internal Medicine; Visit Provider Internal Medicine
DX: Z12.31 Encounter for screening mammogram for malignant neoplasm of breast (principal)
CPT/HCPCS: 77063; 77067

== ENCOUNTER → 2021-11-07 06:39 | Outpatient (CLI) | payer MEDICARE, OTHER, SELFPAY ==
[2021-11-07 08:40] LABS: Add Manual Diff / Slide Review NO; Basophils Absolute Auto 0 /uL (0-100); Basophils Percent Auto 1.1 % (0-2); Eosinophils Absolute Auto 100 /uL (0-450); Eosinophils Percent Auto 2.7 % (2-4); Hematocrit 38.9 % (36-46); Hemoglobin 13.7 g/dL (12.0-16.0); Lymphocytes Absolute Auto 1900 /uL (1100-4500); Mean Corpuscular HGB Conc 35.3 % (30-36); Mean Corpuscular Hemoglobin 32.9 PG (26-34); Mean Corpuscular Volume 93.2 fL (80-100); Monocytes Absolute Auto 400 /uL (0-900); Monocytes Percent Auto 11.3 % (3-14); Neutrophils Absolute Auto 1400 /uL (1500-7000); Neutrophils Percent Auto 35.9 % (50-75); Platelet Count 202 X10^3/uL (150-400); Red Blood Cell Count 4.18 X10^6/uL (4.0-5.2); Red Cell Distribution Width 12.6 % (11.6-14.8); White Blood Cell Count 3.9 X10^3/uL (4.5-11.0)
[2021-11-07 09:04] LABS: Alanine Aminotransferase 25 IU/L (<35); Albumin 4.2 g/dL (3.5-5.0); Albumin Globulin Ratio 1.3 (1.0-2.8); Alkaline Phosphatase 51 U/L (38-126); Aspartate Aminotransferase 34 IU/L (14-36); BUN Creatinine Ratio 18.8 (6-22); Bilirubin Total 0.6 mg/dL (0.2-1.3); Blood Urea Nitrogen 15 mg/dL (7-17); Calcium 9.4 mg/dL (8.4-10.2); Carbon Dioxide 27 mmol/L (22-32); Chloride 97 mmol/L (98-107); Cholesterol 179 mg/dL (140-199); Estimated Glomerular Filt Rate > 60 mL/min (>60); Globulin 3.3 g/dL (1.7-4.1); Glucose 84 mg/dL (80-110); HDL Cholesterol 73 mg/dL (40-60); HEMOLYSIS < 15 (0-50); LDL Cholesterol Calculated 97 mg/dL (<100); Lactate Dehydrogenase 446 U/L (313-618); Potassium 4.6 mmol/L (3.4-5.1); Sodium 132 mmol/L (137-145); Total Protein 7.5 g/dL (6.3-8.2); Triglycerides 47 mg/dL (35-150)
[2021-11-07 09:07] LABS: High Sensitivity CRP - Cardiac 0.9 mg/L (1.0-3.0)
[2021-11-07 10:34] LABS: Erythrocyte Sedimentation Rate 11 MM/HR (0-20)
== END ==
PROVIDERS: PCP Internal Medicine; Referring Provider Internal Medicine; Visit Provider Internal Medicine
DX: E78.00 Pure hypercholesterolemia, unspecified (principal); Z79.899 Other long term (current) drug therapy; L40.50 Arthropathic psoriasis, unspecified
CPT/HCPCS: 36415; 80053; 80061; 82248; 83615; 85025; 85651; 86140

== ENCOUNTER → 2022-06-08 07:01 | Outpatient (CLI) | payer MEDICARE, OTHER, SELFPAY ==
[2022-06-08 08:34] LABS: Add Manual Diff / Slide Review NO; Basophils Absolute Auto 0 /uL (0-100); Eosinophils Absolute Auto 100 /uL (0-450); Hemoglobin 13.5 g/dL (12.0-16.0); Lymphocytes Absolute Auto 1400 /uL (1100-4500); Lymphocytes Percent Auto 36.5 % (25-40); Mean Corpuscular HGB Conc 34.7 % (30-36); Mean Corpuscular Hemoglobin 32.5 PG (26-34); Mean Corpuscular Volume 93.5 fL (80-100); Monocytes Absolute Auto 400 /uL (0-900); Neutrophils Absolute Auto 1800 /uL (1500-7000); Neutrophils Percent Auto 48.5 % (50-75); Platelet Count 206 X10^3/uL (150-400); Red Blood Cell Count 4.17 X10^6/uL (4.0-5.2); Red Cell Distribution Width 12.6 % (11.6-14.8); White Blood Cell Count 3.7 X10^3/uL (4.5-11.0)
[2022-06-08 09:08] LABS: Alanine Aminotransferase 35 IU/L (<35); Albumin 4.1 g/dL (3.5-5.0); Albumin Globulin Ratio 1.1 (1.0-2.8); Alkaline Phosphatase 56 U/L (38-126); Aspartate Aminotransferase 34 IU/L (14-36); BUN Creatinine Ratio 20.8 (6-22); Bilirubin Total 0.6 mg/dL (0.2-1.3); Blood Urea Nitrogen 16 mg/dL (7-17); Calcium 9.1 mg/dL (8.4-10.2); Carbon Dioxide 29 mmol/L (22-32); Chloride 98 mmol/L (98-107); Cholesterol 189 mg/dL (140-199); Estimated Glomerular Filt Rate > 60 mL/min (>60); Globulin 3.6 g/dL (1.7-4.1); Glucose 85 mg/dL (80-110); HDL Cholesterol 73 mg/dL (40-60); HEMOLYSIS < 15 (0-50); LDL Cholesterol Calculated 108 mg/dL (<100); Sodium 131 mmol/L (137-145); Total Protein 7.7 g/dL (6.3-8.2); Triglycerides 39 mg/dL (35-150); VLDL Cholesterol Calculated 8 mg/dL (2-30)
[2022-06-08 09:44] LABS: TSH w/ Reflex to FT4 1.86 uIU/mL (0.47-4.68)
== END ==
PROVIDERS: PCP Internal Medicine; Referring Provider Internal Medicine; Visit Provider Internal Medicine
DX: Z00.00 Encounter for general adult medical examination without abnormal findings (principal); E78.00 Pure hypercholesterolemia, unspecified
CPT/HCPCS: 36415; 80053; 80061; 84443; 85025

== ENCOUNTER → 2022-06-10 10:16 | Outpatient (CLI) | payer MEDICARE, OTHER, SELFPAY ==
--- NOTE | 2022-06-10 10:27 | DI.DEXA.S_ITS ---
Bone Density Report Name: SITA LOBO Age: 77 Sex: Female Ethnicity: White Date of : 1945 Indication: osteopenia; Referring Provider: JESSIE CARNEY Study: Bone densitometry was performed. Exam Date: June 10, 2022 Accession number: [id number] Bone Density: Region BMD T-score Z-score Classification AP Spine(L1-L4) 0.896 -1.4 1.1 Osteopenia Femoral Neck (Left) 0.620 -2.1 0.1 Osteopenia Total Hip (Left) 0.800 -1.2 0.7 Osteopenia Femoral Neck (Right) 0.668 -1.6 0.5 Osteopenia Total Hip (Right) 0.765 -1.4 0.4 Osteopenia Total Hip Mean 0.783 -1.3 0.6 Osteopenia World Health Organization criteria for BMD impression classify patients as: Normal (T-score at or above -1.0), Osteopenia (T-score between -1.0 and -2.5), or Osteoporosis (T-score at or below -2.5). 10-year Fracture Risk(1): Major Osteoporotic Fracture 12% Hip Fracture 3.4% Reported Risk Factors: [place] (), Neck BMD=0.620, BMI=20.1 (1) FRAX(R) Version 3.08. Fracture probability calculated for an untreated patient. Fracture probability may be lower if the patient has received treatment. Previous Exams: -- Region Exam Age BMD T-score BMD Change BMD Change Date g/cm2 vs Baseline vs Previous -- AP Spine (L1-L4) 06/10/2022 77 0.896 -1.4 -0.050 (-5.3%)# -0.050 (-5.3%)# 10/05/2019 74 0.946 -0.9 Total Hip(Left) 06/10/2022 77 0.800 -1.2 0.032 (4.1%)# 0.032 (4.1%)# 10/05/2019 74 0.769 -1.4 Total Hip(Right) 06/10/2022 77 0.765 -1.4 0.019 (2.5%)# 0.019 (2.5%)# 10/05/2019 74 0.746 -1.6 -- *Denotes significance at 95% confidence level, LSC for AP Spine = 0.022 g/cm2, LSC for Total Hip = 0.027 g/cm2 # Denotes dissimilar scan types or analysis methods Impression: The patient has low bone mass, based on the Left Femoral Neck T-score. The patient has an estimated ten-year risk of hip fracture of 3.4% and an estimated ten-year risk of major fracture of 12%, based on the WHO FRAX algorithm. No significant bone loss was observed. Discussion: BONE DENSITY IS LOW AT ONE OR MORE SKELETAL SITES. THE PATIENT'S BMD AND CLINICAL RISK FACTORS CONTRIBUTE TO THIS PATIENT'S INCREASED RISK OF FRACTURE. This patient's lowest T-score is low at one or more skeletal sites. It meets the World Health Organization's (WHO) criteria for ?low bone mass? (T-score between -1.0 and -2.5). The patient's 10-year risk of hip fracture as calculated by FRAX exceeds the threshold where pharmacological therapy is recommended by the National Osteoporosis Foundation (NOF). However, all treatment decisions require clinical judgment and consideration of individual patient factors, including patient preferences, comorbidities, previous drug use, risk factors not captured in the FRAX model (e.g., frailty, falls, vitamin D deficiency, increased bone turnover, interval significant decline in bone density) and possible under or overestimation of fracture risk by FRAX. The patient should follow a healthful lifestyle (good nutrition with adequate calcium and vitamin D, and appropriate weight-bearing exercise). Follow-Up: Consider a repeat BMD and Vertebral Fracture Assessment (VFA) exam in 2 years or sooner if medically necessary, to reassess this patient's status. Reported by: JONNY GILES MD on 06/10/2022 10:48:00 AM.
== END ==
PROVIDERS: PCP Internal Medicine; Referring Provider Internal Medicine; Visit Provider Internal Medicine
DX: M85.852 Other specified disorders of bone density and structure, left thigh (principal); Z78.0 Asymptomatic menopausal state
CPT/HCPCS: 77080

== ENCOUNTER → 2022-10-05 06:54 | Outpatient (CLI) | payer MEDICARE, OTHER, SELFPAY ==
[2022-10-05 07:54] LABS: Add Manual Diff / Slide Review NO; Basophils Absolute Auto 100 /uL (0-100); Basophils Percent Auto 1.5 % (0-2); Eosinophils Absolute Auto 200 /uL (0-450); Eosinophils Percent Auto 5.5 % (2-4); Hematocrit 37.5 % (36-46); Hemoglobin 13.2 g/dL (12.0-16.0); Lymphocytes Absolute Auto 1300 /uL (1100-4500); Lymphocytes Percent Auto 35.1 % (25-40); Mean Corpuscular HGB Conc 35.2 % (30-36); Mean Corpuscular Hemoglobin 32.7 PG (26-34); Mean Corpuscular Volume 92.8 fL (80-100); Monocytes Absolute Auto 400 /uL (0-900); Monocytes Percent Auto 11.4 % (3-14); Neutrophils Absolute Auto 1800 /uL (1500-7000); Neutrophils Percent Auto 46.5 % (50-75); Platelet Count 216 X10^3/uL (150-400); Red Blood Cell Count 4.05 X10^6/uL (4.0-5.2); Red Cell Distribution Width 12.9 % (11.6-14.8); White Blood Cell Count 3.8 X10^3/uL (4.5-11.0)
[2022-10-05 08:15] LABS: Alanine Aminotransferase 28 IU/L (<35); Albumin 4.3 g/dL (3.5-5.0); Albumin Globulin Ratio 1.3 (1.0-2.8); Alkaline Phosphatase 63 U/L (38-126); Aspartate Aminotransferase 32 IU/L (14-36); BUN Creatinine Ratio 16.7 (6-22); Bilirubin Total 0.6 mg/dL (0.2-1.3); Blood Urea Nitrogen 12 mg/dL (7-17); Calcium 9.4 mg/dL (8.4-10.2); Carbon Dioxide 29 mmol/L (22-32); Chloride 95 mmol/L (98-107); Cholesterol 178 mg/dL (140-199); Estimated Glomerular Filt Rate > 60 mL/min (>60); Globulin 3.2 g/dL (1.7-4.1); Glucose 87 mg/dL (80-110); HDL Cholesterol 76 mg/dL (40-60); HEMOLYSIS < 15 (0-50); LDL Cholesterol Calculated 94 mg/dL (<100); Potassium 4.3 mmol/L (3.4-5.1); Sodium 129 mmol/L (137-145); Total Protein 7.5 g/dL (6.3-8.2); Triglycerides 42 mg/dL (35-150)
[2022-10-05 08:18] LABS: High Sensitivity CRP - Cardiac 1.5 mg/L (1.0-3.0)
[2022-10-05 08:25] LABS: Vitamin D 25 Hydroxy (D3) 63.2 ng/mL (30.0-100.0)
[2022-10-05 08:39] LABS: Thyroid Stimulating Hormone 1.76 uIU/mL (0.47-4.68)
[2022-10-06 02:57] LABS: x Labcorp Estim. Avg Glu (eAG) 108 mg/dL (.); x Labcorp Hemoglobin A1c 5.4 % (4.8-5.6)
[2022-10-07 09:17] LABS: Cholesterol, Total 184 mg/dL (100-199); HDL-Cholesterol 85 mg/dL (>39); HDL-Particle (Total) 33.3 umol/L (>=30.5); LDL Particle 679 nmol/L (<1000); LDL-Cholsterol 90 mg/dL (0-99); LP-IR Score <25 (<=45); Small LDL- Particle <90 nmol/L (<=527); Triglycerides 47 mg/dL (0-149)
== END ==
PROVIDERS: PCP Internal Medicine; Referring Provider Internal Medicine; Visit Provider Internal Medicine
DX: Z00.00 Encounter for general adult medical examination without abnormal findings (principal); E78.00 Pure hypercholesterolemia, unspecified; M81.0 Age-related osteoporosis without current pathological fracture; M85.80 Other specified disorders of bone density and structure, unspecified site; Z79.899 Other long term (current) drug therapy; E55.9 Vitamin D deficiency, unspecified; M34.9 Systemic sclerosis, unspecified; I70.0 Atherosclerosis of aorta
CPT/HCPCS: 36415; 80053; 80061; 82306; 83036; 83704; 84443; 85025; 86140

== ENCOUNTER → 2022-10-22 | Outpatient (CLI) | payer MEDICARE, OTHER, SELFPAY ==
--- NOTE | 2022-10-22 | DI.MG.S_ITS ---
BILATERAL DIGITAL SCREENING MAMMOGRAM 3D/2D WITH CAD WITH AUGMENTATION: 10/22/2022 CLINICAL: Routine screening. Comparison is made to exams dated: 10/20/2021 mammogram, 10/17/2020 mammogram, and 10/05/2019 mammogram - [facility]. There are scattered areas of fibroglandular density in both breasts (category b / 25%-50% glandular tissue). Current study was also evaluated with a Computer Aided Detection (CAD) system. Bilateral breast implants are stable. No significant masses, calcifications, or other findings are seen in either breast. There has been no significant interval change. IMPRESSION: BENIGN There is no mammographic evidence of malignancy. A 1 year screening mammogram is recommended. Based on the Tyrer Cuzick model (a risk assessment model) the patient's lifetime risk is 2.2% and her 10 year risk is 0.0%. According to the ACR, ACS, and NCCN guidelines, an annual breast MRI exam along with mammogram is recommended if the patient's lifetime risk is 20% or greater. This exam was interpreted at Station ID: [id number]. NOTE: For mammograms, a report in lay terms will be sent to the patient. Approximately 15% of breast malignancies will not be visualized mammographically. In the management of a palpable breast mass, a negative mammogram must not discourage biopsy of a clinically suspicious lesion. Electronically Signed By: Bobby pizarro/amador:11/01/2022 14:30:19 letter sent: Normal Exam ACR BI-RADS Category 2: Benign Finding(s) 3342F
== END ==
LOC: MAMMO 12:04
PROVIDERS: PCP Internal Medicine; Referring Provider Internal Medicine; Visit Provider Internal Medicine
DX: Z12.31 Encounter for screening mammogram for malignant neoplasm of breast (principal); Z98.82 Breast implant status
CPT/HCPCS: 77063; 77067

== ENCOUNTER → 2022-11-16 10:17 | Outpatient (CLI) | payer MEDICARE, OTHER, SELFPAY ==
--- NOTE | 2022-11-16 | DI.RAD.S_ITS ---
PROCEDURE: FL BARIUM SWALLOW INDICATIONS: Dysphagia, pharyngeal phase COMPARISON: None. Findings and impression: No evidence of aspiration. Please see speech pathology note for full details of findings. Dictated by: Mario Anaya M.D. on 11/17/2022 at 8:45 Approved by: Mario Anaya M.D. on 11/17/2022 at 8:46
--- NOTE | 2022-11-16 13:44 | ST.SWALLOW ---
Visit Care Team Role Provider Type Angela Berry MD Attending Provider Non-Staff Primary Care Provider Referring Provider Specialty: Internal Medicine Address: [address] [place] [address], [place], [address] Email: ST Modified Barium Swallow Study [employer] Modified Barium Swallow Study Start: 11/16/22 10:19 Freq: Status: Active Protocol: Document 11/16/22 11:36 LNK (Rec: 11/16/22 12:20 LNK [id number]) Modified Barium Swallow Study Total Time Visit Start Time 10:30 Visit Stop Time 11:15 Total Visit Minutes [address] Angela Berry - [facility] Setting Setting Outpatient Care Patient Information Identification Type Name,Date of Patient History Pt was seen for a Modified Barium Swallow Study at the referral of her physician, Dr. Angela Berry. According to the pt , she has been having difficulty swallowing off and on for the past year. Most recently, she reported that she had a lot of difficulty with eating a piece of pasta ( rotini) in a soup. Pt noted that she has a sense that her food gets stuck high in the neck and she feels she cannot swallow the bolus. Pt denied a diagnosis of GERD any any neurological diagnoses in her PMH. 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 Subjective Observations The pt presented to the fluoroscopy room and was seated in the fluoro chair. Pt 's voice was observed to be hoarse. When asked, the pt reported tht approximately 5 years ago, she saw an ENT regarding her vocal quality and that she was told that she had weakness in a valve after examination with endoscopy. [place] MBSS instructions and procedures were described for the pt after which she indicated she understood and agreed to proceed. Patient Positioning Position View Lat-A/P Imaging Lateral View Textures Administered Trials Presented Thin Liquid via Spoon (IDDSI 0 ),Thin Liquid via Cup (IDDSI 0 ),Extremely Thick Liquid via Spoon (IDDSI 4),Regular (IDDSI 7) Barium Tablet Yes The IDDSI Framework Protocol: IDDSI.1 Oral Impairment Source: The Modified Barium Swallow Impairment Profile (MBSImP??) Lip Closure No labial escape Tongue Control During Bolus Hold Cohesive bolus between tongue to palatal seal Bolus Preparation/Mastication Timely & efficient chewing & mashing Bolus Transport/Lingual Motion Brisk tongue motion Oral Residue Trace residue lining oral structures Location Tongue Initiation of Pharyngeal Swallow Bolus head at posterior angle of ramus (first hyoid excursion) Additional Oral Impairment Observations OME and DKS were observed to be WNL. ORAL PHASE of swallowing was noted to be WNL with good rotary chew, no oral stasis, good bolus control and AP transition of bolus Pharyngeal Impairment Source: The Modified Barium Swallow Impairment Profile (MBSImP??) Soft Palate Elevation Trace column of contrast between soft palate & pharyngeal wall Laryngeal Elevation Part.sup.move.thyroid cart/ part.approx.arytenoids to epiglot.petiole Anterior Hyoid Excursion Partial anterior movement Epiglottic Movement Complete inversion Laryngeal Vestibular Closure Complete; no air/contrast in laryngeal vestibule Pharyngeal Stripping Wave Present - complete Pharyngoesophageal Segment Opening Partial distention/partial duration; partial obstruction of flow Tongue Base Retraction Wide column of contrast/air betwn tongue base & post. pharyngeal wall Pharyngeal Residue Collection of residue within/ on pharyngeal structures Location Diffuse (>3 areas) Additional Pharyngeal Impairment Weak tongue base muscles Observations negatively impacted the hyolaryngeal elevation; however epiglottic inversion appeared to be WFL. Osteophytes were noted at C4- C5, C5-C6, C6-C7 that impeded opening ot the UES as well as narrowed and altered the shape of the pharynx and esophagus. Additionally, excess soft tissue was seen consistently on the posterior wall of the laryngoesophageal structures extending from the base of tongue to the junction of the thyroid and cricoid cartilages that was not consistent with normal anatomy. Following swallows, there was esophageal residue of contrast at C5-C6 and C7-T1 that corresponded to the osteophyte protrusions. Retro-flow of contrast was noted to the UES. A/P View The IDDSI Framework Protocol: IDDSI.1 A/P View Observations Esophageal Clearance Upright Position Esophageal retention w/ regtrograde flow below UES Esophageal Function Slowed Clearing,Stasis Additional A-P Observations After repositioning the pt from lateral to AP view, the pt's esophagus was observed to have retention of the contrast from prior trials remaining in her esophagus. Narrowing near the LES was observed. The contrast was cleared with water after which a barium tablet was swallowed . The tablet was also observed to stop near the LES, requiring additional swallows to clear the tablet into the stomach. Clinical Impressions Dysphagia Type Pharyngeal,Esophageal Findings Please see Oral/Pharyngeal/ Esophageal sections above for details Pt presented with pharyngoesophageal dysphagia characterized by altering and narrowing the pharyngoesophageal structures (osteophytes), reduced opening of the UES, and unknown excess tissue observed between base of tongue and thyrocricoid catrilage junction. Esophageal dysmotility was noted via retention of contrast as well as a barium tablet proximal to the LES. Recommendations referrals to GI as well as ENT are recommended for further assessment. Patient Appropriate for Therapy No: Dysphagia appears to be related to structural changes - not amenable to tx Recommendations Diet Liquids Order Thin (IDDSI 0) Medication Recommendation As Tolerated Aspiration Precautions Recommended Precautions Upright at 90 Degrees, Alternate Liquids/Solids,Small Bites/Sips Additional Precautions Chew food well, slow rate of intake, additional liquids during meal Treatment Plan Recommended Referrals GI Consult,ENT Consult Additional Recommended Referrals Gi referral for further assessment; ENT referral for vocal quality/swallow Therapy Strategy Recommendations Double Swallow,Small Bites and Sips,Alternate Liquids/Solids Additional Strategies Recommended Increase liquid intake during meals Short Term Goals Pt referral to [facility] (Dr. Lopez) for stroboscopic evaluation of vocal folds/pharynx Pt referral to GI for further assessment Additional Recommendations/Comments Pt referral to [facility] (Dr. Lopez) for stroboscopic evaluation of vocal folds Pt referral to GI for further assessment
== END ==
PROVIDERS: PCP Internal Medicine; Referring Provider Internal Medicine; Visit Provider Internal Medicine
DX: R13.13 Dysphagia, pharyngeal phase (principal)
CPT/HCPCS: 74220; 92611

== ENCOUNTER → 2023-06-16 06:46 | Outpatient (CLI) | payer MEDICARE, OTHER, SELFPAY ==
[2023-06-16 08:35] LABS: Alanine Aminotransferase 29 IU/L (<35); Albumin 4.4 g/dL (3.5-5.0); Albumin Globulin Ratio 1.3 (1.0-2.8); Alkaline Phosphatase 61 U/L (38-126); Aspartate Aminotransferase 37 IU/L (14-36); BUN Creatinine Ratio 19.3 (6-22); Bilirubin Total 0.8 mg/dL (0.2-1.3); Blood Urea Nitrogen 16 mg/dL (7-17); Calcium 9.4 mg/dL (8.4-10.2); Carbon Dioxide 30 mmol/L (22-32); Chloride 96 mmol/L (98-107); Cholesterol 172 mg/dL (140-199); Estimated Glomerular Filt Rate > 60 mL/min (>60); Globulin 3.4 g/dL (1.7-4.1); Glucose 86 mg/dL (80-110); HDL Cholesterol 73 mg/dL (40-60); HEMOLYSIS < 15 (0-50); LDL Cholesterol Calculated 93 mg/dL (<100); Potassium 4.1 mmol/L (3.4-5.1); Sodium 131 mmol/L (137-145); Total Protein 7.8 g/dL (6.3-8.2); Triglycerides 29 mg/dL (35-150)
[2023-06-16 08:47] LABS: LDL Cholesterol Direct 80 mg/dL (<100)
== END ==
LOC: LAB 06:49
PROVIDERS: PCP Internal Medicine; Referring Provider Internal Medicine Cardiovascular Disease; Visit Provider Internal Medicine Cardiovascular Disease
DX: E78.00 Pure hypercholesterolemia, unspecified (principal)
CPT/HCPCS: 36415; 80053; 80061; 83721

== ENCOUNTER → 2023-07-01 12:08 | Outpatient (CLI) | payer MEDICARE, OTHER, SELFPAY ==
[2023-07-01 12:55] LABS: Appearance Urine UA CLEAR; Bilirubin Urine UA NEGATIVE (NEGATIVE); Color Urine UA YELLOW; Glucose Urine UA NEGATIVE (Negative); Ketones Urine UA NEGATIVE (NEGATIVE); Leukocyte Esterase Urine UA NEGATIVE (NEGATIVE); Nitrite Urine UA NEGATIVE (Negative); Occult Blood Urine UA NEGATIVE (Negative); Protein Urine UA NEGATIVE (Negative); Urobilinogen Urine UA 0.2 E.U./dL (0.2)
[2023-07-01 13:03] LABS: Urine Volume 10mL (spun); pH Urine UA 7.5 (4.5-8.0)
[2023-07-01 13:04] LABS: Bacteria Urine None Seen; Culture Indicated Urine Cult Not Indicated; RBC Urine 0-1/HPF (0-5/HPF); Squamous Epithelial Cell Urine 0-1 /HPF (0-5/HPF); WBC Urine 0-1/HPF (0-5/HPF)
== END ==
PROVIDERS: PCP Internal Medicine; Referring Provider Nurse Practitioner; Visit Provider Nurse Practitioner
DX: R30.0 Dysuria (principal)
CPT/HCPCS: 81001

== ENCOUNTER → 2023-09-09 06:49 | Outpatient (CLI) | payer MEDICARE, OTHER, SELFPAY ==
[2023-09-09 08:51] LABS: Alanine Aminotransferase 23 IU/L (<35); Albumin 4.1 g/dL (3.5-5.0); Albumin Globulin Ratio 1.4 (1.0-2.8); Alkaline Phosphatase 66 U/L (38-126); Aspartate Aminotransferase 34 IU/L (14-36); BUN Creatinine Ratio 24.6 (6-22); Bilirubin Total 0.5 mg/dL (0.2-1.3); Blood Urea Nitrogen 17 mg/dL (7-17); Calcium 9.1 mg/dL (8.4-10.2); Carbon Dioxide 29 mmol/L (22-32); Chloride 98 mmol/L (98-107); Cholesterol 145 mg/dL (140-199); Estimated Glomerular Filt Rate > 60 mL/min (>60); Glucose 85 mg/dL (80-110); HDL Cholesterol 81 mg/dL (40-60); HEMOLYSIS < 15 (0-50); LDL Cholesterol Calculated 56 mg/dL (<100); Potassium 4.4 mmol/L (3.4-5.1); Sodium 132 mmol/L (137-145); Total Protein 7.1 g/dL (6.3-8.2); Triglycerides 38 mg/dL (35-150)
[2023-09-09 09:03] LABS: LDL Cholesterol Direct 63 mg/dL (<100)
== END ==
LOC: LAB 06:51
PROVIDERS: PCP Internal Medicine; Referring Provider Internal Medicine Cardiovascular Disease; Visit Provider Internal Medicine Cardiovascular Disease
DX: E78.00 Pure hypercholesterolemia, unspecified (principal)
CPT/HCPCS: 36415; 80053; 80061; 83721

== ENCOUNTER → 2023-10-15 06:42 | Outpatient (CLI) | payer MEDICARE, OTHER, SELFPAY ==
[2023-10-15 08:00] LABS: Add Manual Diff / Slide Review NO; Basophils Absolute Auto 0 /uL (0-100); Basophils Percent Auto 1.1 % (0-2); Eosinophils Absolute Auto 200 /uL (0-450); Eosinophils Percent Auto 4.4 % (2-4); Hematocrit 37.8 % (36-46); Hemoglobin 13.4 g/dL (12.0-16.0); Lymphocytes Absolute Auto 1500 /uL (1100-4500); Lymphocytes Percent Auto 34.4 % (25-40); Mean Corpuscular HGB Conc 35.3 % (30-36); Mean Corpuscular Hemoglobin 33.2 PG (26-34); Mean Corpuscular Volume 94.1 fL (80-100); Monocytes Absolute Auto 500 /uL (0-900); Monocytes Percent Auto 11.6 % (3-14); Neutrophils Absolute Auto 2100 /uL (1500-7000); Neutrophils Percent Auto 48.5 % (50-75); Platelet Count 206 X10^3/uL (150-400); Red Blood Cell Count 4.02 X10^6/uL (4.0-5.2); Red Cell Distribution Width 12.6 % (11.6-14.8); White Blood Cell Count 4.3 X10^3/uL (4.5-11.0)
[2023-10-15 08:37] LABS: Alanine Aminotransferase 23 IU/L (<35); Albumin 4.3 g/dL (3.5-5.0); Albumin Globulin Ratio 1.7 (1.0-2.8); Alkaline Phosphatase 59 U/L (38-126); Aspartate Aminotransferase 33 IU/L (14-36); BUN Creatinine Ratio 28.2 (6-22); Bilirubin Total 0.6 mg/dL (0.2-1.3); Blood Urea Nitrogen 20 mg/dL (7-17); Calcium 9.3 mg/dL (8.4-10.2); Carbon Dioxide 26 mmol/L (22-32); Chloride 97 mmol/L (98-107); Cholesterol 146 mg/dL (140-199); Estimated Glomerular Filt Rate > 60 mL/min (>60); Globulin 2.5 g/dL (1.7-4.1); Glucose 80 mg/dL (80-110); HDL Cholesterol 86 mg/dL (40-60); HEMOLYSIS < 15 (0-50); LDL Cholesterol Calculated 51 mg/dL (<100); Potassium 4.6 mmol/L (3.4-5.1); Sodium 131 mmol/L (137-145); Total Protein 6.8 g/dL (6.3-8.2); Triglycerides 44 mg/dL (35-150); VLDL Cholesterol Calculated 9 mg/dL (2-30)
[2023-10-15 08:52] LABS: Vitamin D 25 Hydroxy (D3) 54.5 ng/mL (30.0-100.0)
[2023-10-15 09:05] LABS: TSH w/ Reflex to FT4 1.73 uIU/mL (0.47-4.68)
[2023-10-15 09:24] LABS: Vitamin B12 804 pg/mL (239-931)
[2023-10-17 13:36] LABS: Cholesterol, Total 145 mg/dL (100-199); HDL-Cholesterol 95 mg/dL (>39); Historical Reading Comment: (.); LDL Particle 313 nmol/L (<1000); LDL Size 20.8 nm (>20.5); LDL-Cholsterol 40 mg/dL (0-99); LP-IR Score <25 (<=45); Small LDL- Particle <90 nmol/L (<=527); Triglycerides 42 mg/dL (0-149)
== END ==
PROVIDERS: PCP Internal Medicine; Referring Provider Internal Medicine; Visit Provider Internal Medicine
DX: Z00.00 Encounter for general adult medical examination without abnormal findings (principal); E55.9 Vitamin D deficiency, unspecified; E78.00 Pure hypercholesterolemia, unspecified; I45.2 Bifascicular block; R78.71 Abnormal lead level in blood
CPT/HCPCS: 36415; 80053; 80061; 82306; 82607; 83036; 83704; 84443; 85025

== ENCOUNTER → 2023-11-05 11:06 | Outpatient (CLI) | payer MEDICARE, OTHER, SELFPAY ==
--- NOTE | 2023-11-05 11:08 | DI.MG.S_ITS ---
BILATERAL DIGITAL SCREENING MAMMOGRAM 3D/2D WITH CAD WITH AUGMENTATION: 11/05/2023 CLINICAL: Routine screening. Comparison is made to exams dated: 10/22/2022 mammogram, 10/20/2021 mammogram, and 10/17/2020 mammogram - [facility]. There are scattered areas of fibroglandular density (category b / 25%-50% glandular tissue). Current study was also evaluated with a Computer Aided Detection (CAD) system. Bilateral breast implants are intact. No significant masses, calcifications, or other findings are seen in either breast. There has been no significant interval change. IMPRESSION: BENIGN There is no mammographic evidence of malignancy. A 1 year screening mammogram is recommended. Based on the Tyrer Cuzick model (a risk assessment model) the patient's lifetime risk is 2.0% and her 10 year risk is 0.0%. According to the ACR, ACS, and NCCN guidelines, an annual breast MRI exam along with mammogram is recommended if the patient's lifetime risk is 20% or greater. This exam was interpreted at Station ID: [id number]. NOTE: For mammograms, a report in lay terms will be sent to the patient. Approximately 15% of breast malignancies will not be visualized mammographically. In the management of a palpable breast mass, a negative mammogram must not discourage biopsy of a clinically suspicious lesion. Electronically Signed By: Ayla Ledezma M.D., Ph.D. elif/amador:11/05/2023 14:09:37 letter sent: Normal Exam ACR BI-RADS Category 2: Benign [id number]
== END ==
LOC: MAMMO 11:07
PROVIDERS: PCP Internal Medicine; Referring Provider Internal Medicine; Visit Provider Internal Medicine
DX: Z12.31 Encounter for screening mammogram for malignant neoplasm of breast (principal)
CPT/HCPCS: 77063; 77067

== ENCOUNTER → 2024-06-26 06:49 | Outpatient (CLI) | payer MEDICARE, OTHER, SELFPAY ==
[2024-06-26 08:14] LABS: Alanine Aminotransferase 28 IU/L (<35); Albumin 4.4 g/dL (3.5-5.0); Albumin Globulin Ratio 1.8 (1.0-2.8); Alkaline Phosphatase 57 U/L (38-126); Aspartate Aminotransferase 38 IU/L (14-36); BUN Creatinine Ratio 23.1 (6-22); Bilirubin Total 0.8 mg/dL (0.2-1.3); Blood Urea Nitrogen 18 mg/dL (7-17); Calcium 9.1 mg/dL (8.4-10.2); Carbon Dioxide 27 mmol/L (22-32); Chloride 93 mmol/L (98-107); Cholesterol 141 mg/dL (140-199); Estimated Glomerular Filt Rate > 60 mL/min (>60); Globulin 2.4 g/dL (1.7-4.1); Glucose 83 mg/dL (70-99); HDL Cholesterol 81 mg/dL (40-60); HEMOLYSIS < 15 (0-50); LDL Cholesterol Calculated 53 mg/dL (<100); Potassium 4.5 mmol/L (3.4-5.1); Sodium 127 mmol/L (137-145); Total Protein 6.8 g/dL (6.3-8.2); Triglycerides 37 mg/dL (35-150)
[2024-06-26 08:25] LABS: LDL Cholesterol Direct 43 mg/dL (<100)
== END ==
PROVIDERS: PCP Internal Medicine; Referring Provider Internal Medicine Cardiovascular Disease; Visit Provider Internal Medicine Cardiovascular Disease
DX: E78.00 Pure hypercholesterolemia, unspecified (principal)
CPT/HCPCS: 36415; 80053; 80061; 83721

== ENCOUNTER → 2024-07-11 12:16 | Outpatient (CLI) | payer MEDICARE, OTHER, SELFPAY ==
[2024-07-11 14:11] LABS: BUN Creatinine Ratio 16.7 (6-22); Blood Urea Nitrogen 13 mg/dL (7-17); Calcium 9.4 mg/dL (8.4-10.2); Carbon Dioxide 27 mmol/L (22-32); Chloride 92 mmol/L (98-107); Estimated Glomerular Filt Rate > 60 mL/min (>60); Glucose 70 mg/dL (70-99); HEMOLYSIS < 15 (0-50); Potassium 4.8 mmol/L (3.4-5.1); Sodium 129 mmol/L (137-145)
[2024-07-11 14:35] LABS: TSH w/ Reflex to FT4 1.01 uIU/mL (0.47-4.68)
[2024-07-11 17:44] LABS: Sodium Urine Random 16 mmol/L (30-90)
[2024-07-13 14:39] LABS: Osmolality, Serum 268 mOsmol/kg (280-301)
== END ==
PROVIDERS: PCP Internal Medicine; Referring Provider Internal Medicine; Visit Provider Internal Medicine
DX: E87.1 Hypo-osmolality and hyponatremia (principal)
CPT/HCPCS: 36415; 80048; 83930; 84300; 84443

== ENCOUNTER → 2024-07-24 10:05 | Outpatient (CLI) | payer MEDICARE, OTHER, SELFPAY ==
[2024-07-24 10:49] LABS: Appearance Urine UA CLEAR; Bilirubin Urine UA NEGATIVE (NEGATIVE); Color Urine UA YELLOW; Glucose Urine UA NEGATIVE (Negative); Ketones Urine UA NEGATIVE (NEGATIVE); Leukocyte Esterase Urine UA NEGATIVE (NEGATIVE); Nitrite Urine UA NEGATIVE (Negative); Occult Blood Urine UA NEGATIVE (Negative); Protein Urine UA NEGATIVE (Negative); Specific Gravity Urine UA <=1.005 (1.000-1.035); Urobilinogen Urine UA 0.2 E.U./dL (0.2)
[2024-07-24 10:50] LABS: Urine Volume 10mL (spun); pH Urine UA 6.5 (4.5-8.0)
[2024-07-24 10:51] LABS: Bacteria Urine None Seen; Culture Indicated Urine Cult Not Indicated; RBC Urine None Seen (0-5/HPF); Squamous Epithelial Cell Urine 5-10 /HPF (0-5/HPF); WBC Urine None Seen (0-5/HPF)
[2024-07-24 11:01] LABS: Alanine Aminotransferase 25 IU/L (<35); Albumin 4.4 g/dL (3.5-5.0); Albumin Globulin Ratio 1.8 (1.0-2.8); Alkaline Phosphatase 53 U/L (38-126); Aspartate Aminotransferase 34 IU/L (14-36); BUN Creatinine Ratio 27.8 (6-22); Bilirubin Total 0.7 mg/dL (0.2-1.3); Blood Urea Nitrogen 20 mg/dL (7-17); Calcium 9.1 mg/dL (8.4-10.2); Carbon Dioxide 30 mmol/L (22-32); Chloride 93 mmol/L (98-107); Estimated Glomerular Filt Rate > 60 mL/min (>60); Globulin 2.5 g/dL (1.7-4.1); Glucose 85 mg/dL (70-99); HEMOLYSIS < 15 (0-50); Potassium 4.6 mmol/L (3.4-5.1); Sodium 129 mmol/L (137-145); Total Protein 6.9 g/dL (6.3-8.2)
[2024-07-25 11:12] LABS: Osmolality Urine 284 mOsmol/kg (.); Osmolality, Serum 266 mOsmol/kg (280-301)
== END ==
LOC: LAB 10:08
PROVIDERS: PCP Internal Medicine; Referring Provider Internal Medicine; Visit Provider Internal Medicine
DX: E87.1 Hypo-osmolality and hyponatremia (principal)
CPT/HCPCS: 36415; 80053; 81001; 83930; 83935

== ENCOUNTER → 2024-08-17 06:57 | Outpatient (CLI) | payer MEDICARE, OTHER, SELFPAY ==
[2024-08-17 08:24] LABS: BUN Creatinine Ratio 22.5 (6-22); Blood Urea Nitrogen 18 mg/dL (7-17); Calcium 9.5 mg/dL (8.4-10.2); Carbon Dioxide 27 mmol/L (22-32); Chloride 96 mmol/L (98-107); Estimated Glomerular Filt Rate > 60 mL/min (>60); Glucose 61 mg/dL (70-99); HEMOLYSIS < 15 (0-50); Potassium 4.7 mmol/L (3.4-5.1); Sodium 131 mmol/L (137-145)
== END ==
PROVIDERS: PCP Internal Medicine; Referring Provider Internal Medicine; Visit Provider Internal Medicine
DX: E87.1 Hypo-osmolality and hyponatremia (principal)
CPT/HCPCS: 36415; 80048

== ENCOUNTER → 2024-09-15 10:10 | Outpatient (CLI) | payer MEDICARE, OTHER, SELFPAY ==
[2024-09-15 11:30] LABS: Blood Urea Nitrogen 20 mg/dL (7-17); Calcium 9.0 mg/dL (8.4-10.2); Carbon Dioxide 25 mmol/L (22-32); Chloride 92 mmol/L (98-107); Estimated Glomerular Filt Rate > 60 mL/min (>60); Glucose 84 mg/dL (70-99); HEMOLYSIS < 15 (0-50); Potassium 4.6 mmol/L (3.4-5.1); Sodium 125 mmol/L (137-145)
== END ==
PROVIDERS: PCP Internal Medicine; Referring Provider Internal Medicine; Visit Provider Internal Medicine
DX: E87.1 Hypo-osmolality and hyponatremia (principal)
CPT/HCPCS: 36415; 80048

== ENCOUNTER → 2024-11-02 09:19 | Outpatient (CLI) | payer MEDICARE, OTHER, SELFPAY ==
[2024-11-02 10:12] LABS: Add Manual Diff / Slide Review NO; Appearance Urine UA CLEAR; Bilirubin Urine UA NEGATIVE (NEGATIVE); Color Urine UA YELLOW; Glucose Urine UA NEGATIVE (Negative); Hematocrit 39.9 % (36-46); Hemoglobin 13.6 g/dL (12.0-16.0); Ketones Urine UA NEGATIVE (NEGATIVE); Leukocyte Esterase Urine UA TRACE (NEGATIVE); Lymphocytes Absolute Auto 1500 /uL (1100-4500); Mean Corpuscular HGB Conc 34.0 % (30-36); Mean Corpuscular Hemoglobin 33.0 PG (26-34); Mean Corpuscular Volume 96.9 fL (80-100); Nitrite Urine UA NEGATIVE (Negative); Occult Blood Urine UA TRACE-INTACT (Negative); Platelet Count 196 X10^3/uL (150-400); Protein Urine UA NEGATIVE (Negative); Specific Gravity Urine UA 1.015 (1.000-1.035); Urobilinogen Urine UA 0.2 E.U./dL (0.2)
[2024-11-02 10:24] LABS: pH Urine UA 6.0 (4.5-8.0)
[2024-11-02 10:25] LABS: Culture Indicated Urine Cult Not Indicated
[2024-11-02 10:42] LABS: Blood Urea Nitrogen 24 mg/dL (7-17); Calcium 9.3 mg/dL (8.4-10.2); Carbon Dioxide 28 mmol/L (22-32); Chloride 96 mmol/L (98-107); Estimated Glomerular Filt Rate > 60 mL/min (>60); Glucose 64 mg/dL (70-99); HEMOLYSIS < 15 (0-50); Phosphorous 4.0 mg/dL (2.8-4.1); Potassium 4.3 mmol/L (3.4-5.1); Sodium 133 mmol/L (137-145); Uric Acid 4.7 mg/dL (2.5-6.2)
[2024-11-02 10:46] LABS: Protein (Total) Urine Random < 5 mg/dL (0-12); Protein Creatinine Ratio Urine 0.07 GRAM/24H
[2024-11-02 10:56] LABS: Vitamin D 25 Hydroxy (D3) 62.7 ng/mL (30.0-100.0)
[2024-11-02 11:11] LABS: Cortisol AM (Before 10AM) 12.2 ug/dL (4.46-22.7)
== END ==
PROVIDERS: PCP Internal Medicine; Referring Provider Internal Medicine Nephrology; Visit Provider Internal Medicine Nephrology
DX: E22.2 Syndrome of inappropriate secretion of antidiuretic hormone (principal); E55.9 Vitamin D deficiency, unspecified
CPT/HCPCS: 36415; 80048; 81001; 82306; 82533; 82570; 83935; 83970; 84100; 84133; 84156; 84550; 85025

== ENCOUNTER → 2024-11-07 13:04 | Outpatient (CLI) | payer MEDICARE, OTHER, SELFPAY ==
--- NOTE | 2024-11-07 13:05 | DI.MG.S_ITS ---
MM screening mammo implant BI: 11/07/2024. BI-RADS: 2 CLINICAL: 79-year old female for bilateral screening mammogram. Tyrer-Cuzick lifetime risk of 1.4%. No personal or first-degree family history of breast cancer. The patient has bilateral implants. PRIOR EXAMS 11/05/2023, 10/22/2022, 10/20/2021, 10/17/2020. MAMMOGRAPHY TECHNIQUE: 2D and 3D (tomosynthesis) digital mammographic views obtained, with additional images as needed for full coverage. Current study was also evaluated with a Computer Aided Detection (CAD) system. DENSITY C. The breasts are heterogeneously dense, which may obscure small masses. IMPLANTS Breast implants present. MAMMOGRAPHY FINDINGS Bilateral: There are no suspicious masses, calcifications, or other findings in the breast. IMPRESSION: * No evidence of malignancy with benign findings. RECOMMENDATIONS Bilateral * Annual screening mammography. OVERALL ASSESSMENT CATEGORY BI-RADS-2: Benign. The [employer] recommends annual screening mammography beginning at age 40 for women with average risk of breast cancer. ELECTRONICALLY SIGNED: Ayla Ledezma M.D. on 11/11/2024 at 02:57:27 PM PT Interpreting Station ID: [id number]
--- NOTE | 2024-11-07 13:06 | DI.RAD.S_ITS ---
PROCEDURE: XR DEXA AXIAL W/VFA INDICATIONS: screening/osteoporosis screening COMPARISON: [facility], , XR DEXA AXIAL SKELETON, 06/10/2022, 10:27. FINDINGS: Lumbar spine: L1-L4. BMD 0.901. T-score:-1.3. Osteopenia. Z-score 1.3. Moderate height loss at T10 calculated. However this is likely artifactual due to overlapping diaphragm. Consider dedicated spine radiographs. Left femoral neck: BMD 0.604. T-score:-2.2. Osteopenia. Z-score 0.0. Left hip total: BMD 0.771. T-score:-1.4. Osteopenia. Z-score 0.6. 10 year fracture risk: Major osteoporotic facture: 13%. Hip fracture: 4.3%. IMPRESSION: Osteopenia. Follow-up guidelines as follows: Osteoporosis: Consider a repeat DEXA and Vertebral Fracture Assessment (VFA) exam in 2 years or sooner if medically necessary, to reassess this patient's status. Osteopenia: Consider a repeat DEXA in 2-3 years to reassess this patient's status, or if there is a new clinical indication. Normal: Consider a repeat DEXA in 5 years or sooner, or if there is a new clinical indication. All treatment decisions require clinical judgment and consideration of individual patient factors, including patient preferences, comorbidities, previous drug use, risk factors not captured in the FRAX model (e.g., frailty, falls, vitamin D deficiency, increased bone turnover, interval significant decline in bone density ) and possible under- or over-estimation of fracture risk by FRAX. In addition, the NOF Guide recommends that FDA-approved medical therapies be considered in postmenopausal women and men age >= 50 years with a: * Hip or vertebral (clinical or morphometric) fracture * T-score of <=-2.5 at the spine or hip * Ten-year fracture probability by FRAX of >= 3% for hip fracture or >=20% for major osteoporotic fracture. Dictated by: Phill Bernal M.D. on 11/08/2024 at 7:03 Approved by: Bradley Woody M.D. on 11/09/2024 at 15:21
== END ==
LOC: MAMMO 13:05
PROVIDERS: PCP Internal Medicine; Referring Provider Internal Medicine; Visit Provider Internal Medicine
DX: Z12.31 Encounter for screening mammogram for malignant neoplasm of breast (principal); R92.333 Mammographic heterogeneous density, bilateral breasts; Z98.82 Breast implant status; Z13.820 Encounter for screening for osteoporosis; M85.89 Other specified disorders of bone density and structure, multiple sites; N95.1 Menopausal and female climacteric states
CPT/HCPCS: 77063; 77067; 77085

== ENCOUNTER → 2024-12-25 13:37 | Outpatient (CLI) | payer MEDICARE, OTHER, SELFPAY ==
[2024-12-25 16:17] LABS: Blood Urea Nitrogen 24 mg/dL (7-17); Calcium 9.4 mg/dL (8.4-10.2); Carbon Dioxide 28 mmol/L (22-32); Chloride 93 mmol/L (98-107); Estimated Glomerular Filt Rate > 60 mL/min (>60); Glucose 61 mg/dL (70-99); HEMOLYSIS < 15 (0-50); Potassium 4.5 mmol/L (3.4-5.1); Sodium 129 mmol/L (137-145)
== END ==
PROVIDERS: PCP Internal Medicine; Referring Provider Internal Medicine; Visit Provider Internal Medicine
DX: E78.1 Pure hyperglyceridemia (principal)
CPT/HCPCS: 36415; 80048